=== PATIENT | female | born 1965 | race African-American/Black ===

== ENCOUNTER → 2017-11-08 | Outpatient (CLI) | payer BC ==
[~2017-11-08] MED LIST: BIOT1CAP2 PO; MOBI15TA PO; MULT-65 PO; VENTAER INH; VITA1000 PO; VITA500C18 PO
--- NOTE | 2017-11-09 15:58 | EKG ---
Date Performed: 11/08/2017 Time Performed: 13:20:02 PTAGE: 52 years EKG: Sinus rhythm . Normal ECG NO PREVIOUS TRACING DOCTOR: Adolfo Quezada Interpretating Date/Time 11/09/2017 15:56:26
== END ==
LOC: CPRE 13:03
PROVIDERS: ATTEND Obstetrics & Gynecology
DX: Z01.810 Encounter for preprocedural cardiovascular examination (principal); D25.9 Leiomyoma of uterus, unspecified; N83.202 Unspecified ovarian cyst, left side
CPT/HCPCS: 93005

== ENCOUNTER 2017-11-30 11:50 | Inpatient (IN) | payer BC ==
--- NOTE | 2017-11-29 08:52 | MH ---
cc: DWAYNE FITZPATRICK DATE OF ADMISSION: 11/30/2017 ADMITTING DIAGNOSIS Pelvic pain with enlarging fibroids and ovarian cyst. HISTORY OF PRESENT ILLNESS The patient is a 52-year-old black female, para 2-0-1-2, who has had pelvic pain and pressure related to enlarging fibroids. Her most recent ultrasound on 09/26/2017 showed two prominent fundal fibroids, each about 2.1 cm, and a simple cyst involving the left ovary, 2.0 cm. She is now admitted for surgical treatment. Her menstrual cycles have been regular and last about 3 days with some dysmenorrhea. PAST MEDICAL HISTORY PREVIOUS SURGERY Sinuses and tonsils in 1988. MEDICATIONS Albuterol. ALLERGIES PENICILLIN. TRANSFUSIONS None. SERIOUS MEDICAL ILLNESSES Asthma. OB HISTORY Two vaginal deliveries. One spontaneous . 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 She is 14 years. Alcohol occasional. Tobacco none. Drugs none. FAMILY HISTORY Her family history is noncontributory. PHYSICAL EXAMINATION GENERAL: A well-nourished well-developed black female. VITAL SIGNS: Stable. HEENT: Exam is normal. CHEST: Clear. HEART: Regular rate. BREASTS: Symmetrical. ABDOMEN: Benign. PELVIC: Normal external genitalia and BUS. Vagina is normal. Cervix is normal. The uterus is enlarged about 12-14 weeks in size with cystic left adnexa. ASSESSMENT As above. PLAN She is now admitted for a surgical evaluation to include laparoscopy with probable laparotomy for a myomectomy and ovarian cystectomy. While in the office I explained the procedures, the risks, benefits and complications including infection, injury, bleeding and recurrent fibroids. She is also aware that the procedure may not eliminate all pain and discomfort. The patient elected to proceed. MD KATERINE Meng/ASTRID /8:13 AM 8:28 AM CAREY
[~2017-11-30] VITALS: Ht 165.1 cm; Wt 60.5 kg
[2017-11-30] MEDS ORDERED: LACTATED RINGER'S 1000 ML INJ 1,000 ML IV ONE (12:00)
[2017-11-30] MEDS ORDERED: LIDOCAINE HCL 1% PF 5 ML SYRINGE OTHER ONE (12:00)
[2017-11-30] MEDS ORDERED: PROPOFOL 200 MG/20 ML AMP IV ONE (12:00)
[2017-11-30] MEDS ORDERED: ROCURONIUM INJ 50 MG/5 ML SYRINGE IV PUSH ONE (12:00)
[2017-11-30] MEDS ORDERED: GLYCOPYRROLATE 1 MG/5 ML SYRINGE IV PUSH ONE (12:00)
[2017-11-30] MEDS ORDERED: KETOROLAC TROMETHAMINE 30 MG/ML (IVP) VIAL IV PUSH ONE (12:00)
[2017-11-30] MEDS ORDERED: NEOSTIGMINE 5 MG/5 ML SYRINGE IV PUSH ONE (12:00)
[2017-11-30] MEDS ORDERED: ONDANSETRON HCL 4 MG/2 ML VIAL IV PUSH ONE (12:00)
[2017-11-30] MEDS ORDERED: DEXAMETHASONE SOD PHOS 4 MG/ML VIAL IV ONE (12:00)
[2017-11-30] MEDS ORDERED: SODIUM CHLORIDE 0.9% 20 ML VIAL IV ONE (12:00)
[2017-11-30] MEDS ORDERED: CLINDAMYCIN PHOS 900 MG/6 ML VIAL ONE (12:53)
[2017-11-30] MEDS ORDERED: SODIUM CHLORIDE 0.9% INJ 100 ML ONE (12:54)
[2017-11-30] MEDS ORDERED: ACETAMINOPHEN 1000 MG/100 ML 100 ML IV ONE (13:00)
[2017-11-30] MEDS ORDERED: CHLORHEXIDINE GLUCONATE 2 % 1 PACK (2 CLOTHS) TOPICAL PRN (13:00)
[2017-11-30] MEDS ORDERED: POVIDONE IODINE 5% (ANTISEPSIS KIT) 4 APPLICATIONS EACH NARE PRN (13:00)
[2017-11-30] MEDS ORDERED: SODIUM CHLORID 0.9% 500 ML IV PRN (13:00)
[2017-11-30] MEDS ORDERED: METOPROLOL TARTRATE 25 MG TAB PO PRN (13:00)
[2017-11-30] MEDS ORDERED: LACTATED RINGER'S 1000 ML IV PRN (13:00)
[2017-11-30] MEDS ORDERED: CLINDAMYCIN 900 MG/NS PREMIX 50 ML IV ONE (13:00)
[2017-11-30] MEDS ORDERED: BUPIVACAINE/EPINEPHRINE 0.5% 50 ML VIAL ONE (15:34)
[2017-11-30] MEDS ORDERED: MIDAZOLAM HCL 2 MG/2 ML VIAL ONE (15:54)
[2017-11-30] MEDS ORDERED: ACETAMINOPHEN 1000 MG/100 ML 0 ML IV ONE (15:54)
[2017-11-30] MEDS ORDERED: ROPIVACAINE 0.5% PF INJ 30 ML VIAL ONE (17:28)
[2017-11-30] MEDS ORDERED: MORPHINE SULFATE 30 MG/30 ML PCA IV SCH (17:30)
[2017-11-30] MEDS ORDERED: ZOLPIDEM TARTRATE 5 MG TAB PO PRN (17:30)
[2017-11-30] MEDS ORDERED: ONDANSETRON HCL 4 MG/2 ML VIAL IV PUSH PRN (17:30)
[2017-11-30] MEDS ORDERED: NALOXONE HCL 0.4 MG/ML AMP IV PUSH PRN (17:30)
[2017-11-30] MEDS ORDERED: PROMETHAZINE INJ 25 MG/ML VIAL IM PRN (17:30)
[2017-11-30] MEDS ORDERED: DO NOT ADM ANY ANTICOAGULANT DRUGS PRN (18:03)
--- NOTE | 2017-11-30 18:17 | MP ---
cc: DWAYNE FITZPATRICK DATE OF SURGERY 11/30/2017 PREOPERATIVE DIAGNOSIS Pelvic pain, uterine fibroids, left ovarian cyst. POSTOPERATIVE DIAGNOSIS Uterine fibroids. PROCEDURE Laparoscopy followed by laparotomy with myomectomy times three. ANESTHESIA General ET SURGEON Dwayne Fitzpatrick MD CHOREOGRAPHY DIRECTOR [place] ESTIMATED BLOOD LOSS 50 cc FLUIDS Are 1.4 liters of crystalloid. OBJECTIVE FINDINGS Following induction of adequate general endotracheal incision, the patient was prepped and draped supine on the operating table in the usual sterile fashion with bladder being drained by Santiago catheterization. The abdomen was opened through a 0.5 cm infra-umbilical incision. A 5 port was placed and the laparoscope was inserted. Under direct vision a second port was placed in the midline suprapubic. The uterus is about 12 weeks' size with fibroids two of which are posterior, one was anterior. Due to the posterior location it was felt best to proceed with laparotomy. The scope was removed, gas allowed to escape. Ports removed. The lower port site was enlarged to an 8-cm transverse Pfannenstiel incision using a knife to cut down through the skin to the fascia. The fascia was opened transversely, stripped from the muscles, the rectus muscle in the midline and the peritoneum was opened sharply. The elastic protractor was placed. The bowels were packed from the operative field and the uterus was elevated with Huntington clamps on the round ligaments. The posterior fundal fibroid was removed, opening with a midline incision. This was shelled out about 2 cm in size and the wound was closed in two layers of 0 Vicryl interrupted sutures. A superficial posterior fibroid was also shelled out on the right posterior side and closed with one layer of interrupted sutures of 0 Vicryl. Anteriorly a mid incision was made to remove another 2 cm fibroid. This was shelled out and the wound closed in two layers of Vicryl 0 interrupted sutures. Irrigation performed. No bleeding was evident. The operative sites were coated with Interceed both front and back. The laps were removed. Counts were correct. The patient's lap band was inspected, it had not been compromised by the surgery, the lap band injection tubing. The perineum was now closed with running stitch of 2-0 Vicryl, the fascia with a running locking stitch of 2-0 Vicryl corner to midline and tied, subcu with running 3-0 Vicryl and skin with running subcuticular 3-0 Monocryl. The umbilical laparoscope port was closed with Monocryl sutures 3-0 interrupted. Dermabond applied. All counts were correct and the patient was awakened and taken to the recovery room in good condition. MD KATERINE Meng/YOUSIF /5:14 PM /5:35 PM MTDEdyta
[2017-11-30] MEDS: D5-1/2 NS + KCL 20 MEQ INJ 1,000 ML IV SCH (18:21)
[2017-11-30] MEDS ORDERED: *morphine SULFATE 4 MG/ML PERIprocedure ONLY ONE (18:27)
[2017-11-30 18:53] VITALS: BP 115/70; PULSE 62; RESP 14; TEMP 97.9; O2SAT 94
[2017-11-30] MEDS ORDERED: ALBUTEROL SULFATE 90 MCG/ACT HFA 18 GM INHALER INH PRN (19:00)
[2017-11-30] MEDS ORDERED: KETOROLAC TROMETHAMINE 30 MG/ML (IVP) VIAL IVP SCH (19:00)
[2017-11-30] MEDS ORDERED: ALBUTEROL SULFATE 90 MCG/ACT HFA 8 GM INHALER INH PRN (19:30)
[2017-11-30 20:00] VITALS: BP 97/64; PULSE 64; RESP 16; TEMP 98.2; O2SAT 100
[2017-11-30] MEDS ORDERED: ACETAMINOPHEN 1000 MG/100 ML VIAL IV SCH (21:00)
[2017-11-30] MEDS: DOCUSATE SODIUM 100 MG CAP PO SCH (21:00)
[2017-11-30 21:13] LABS: HEMATOCRIT 39.4 % (35.0-46.0); HEMOGLOBIN 13.1 GM/DL (11.6-15.3)
[2017-11-30] MEDS: PCA - TOTAL MG MORPHINE DELIVERED PER SHIFT SCH (22:00)
[2017-11-30] MEDS: KETOROLAC TROMETHAMINE 30 MG/ML (IVP) VIAL IVP SCH (23:28)
[2017-12-01] VITALS (7 sets, daily range): BP systolic 75–91; BP diastolic 44–68; PULSE 53–69; RESP 14–18; TEMP 97.4–98.1; O2SAT 95–100
[2017-12-01] MEDS: ACETAMINOPHEN 1000 MG/100 ML VIAL IV SCH ×2 (01:34→10:05)
[2017-12-01] MEDS: D5-1/2 NS + KCL 20 MEQ INJ 1,000 ML IV SCH (01:34)
[2017-12-01] MEDS: KETOROLAC TROMETHAMINE 30 MG/ML (IVP) VIAL IVP SCH ×2 (05:16→12:21)
[2017-12-01] MEDS: PCA - TOTAL MG MORPHINE DELIVERED PER SHIFT SCH (05:25)
[2017-12-01 06:22] LABS: AUTOMATED NEUTROPHIL # 9.1 TH/MM3 (1.8-7.7); BASOPHIL % 0.2 % (0.0-2.0); HEMATOCRIT 32.4 % (35.0-46.0); HEMOGLOBIN 11.2 GM/DL (11.6-15.3); LYMPH % 5.7 % (9.0-44.0); LYMPHOCYTE # 0.6 TH/MM3 (1.0-4.8); MEAN CELL VOLUME 97.7 FL (80.0-100.0); MEAN CORPUSCULAR HEMOGLOBIN 33.8 PG (27.0-34.0); MEAN CORPUSCULAR HGB CONC 34.6 % (32.0-36.0); MEAN PLATELET VOLUME 7.3 FL (7.0-11.0); MONO % 2.2 % (0.0-8.0); MONOCYTE # 0.2 TH/MM3 (0-0.9); NEUT % 91.9 % (16.0-70.0); PLATELET COUNT 255 TH/MM3 (150-450); RED BLOOD COUNT 3.32 MIL/MM3 (4.00-5.30); RED CELL DISTRIBUTION WIDTH 13.2 % (11.6-17.2); WHITE BLOOD COUNT 9.8 TH/MM3 (4.0-11.0)
[2017-12-01 06:45] LABS: BICARBONATE 24.4 MEQ/L (21.0-32.0); CALCIUM 8.1 MG/DL (8.5-10.1); CREATININE 0.86 MG/DL (0.50-1.00)
[2017-12-01] MEDS: DOCUSATE SODIUM 100 MG CAP PO SCH (09:00)
--- NOTE | 2017-12-02 23:58 | EKG ---
Date Performed: 11/30/2017 Time Performed: 13:16:51 PTAGE: 52 years EKG: SINUS BRADYCARDIA BORDERLINE ECG PREVIOUS TRACING : 11/08/2017 13.20 DOCTOR: Anthony High Interpretating Date/Time 12/02/2017 23:56:16
== END 2017-12-01 14:50 | disposition home or self-care (01) | DRG 743 ==
LOC: INTOOBSV 12:12 → HSDI 12:12 → EDSTATUS 14:45 → OBSVTOIN 17:24 → H1EA 18:38
PROVIDERS: ADMIT Obstetrics & Gynecology; ATTEND Obstetrics & Gynecology
PROC: 0UB90ZZ Excision of Uterus, Open Approach (ICD-10-PCS; principal; 2017-11-30 16:07)
PROC: 0WJJ4ZZ Inspection of Pelvic Cavity, Percutaneous Endoscopic Approach (ICD-10-PCS; 2017-11-30 16:07)
DX: D25.9 Leiomyoma of uterus, unspecified (principal); F32.9 Major depressive disorder, single episode, unspecified; J45.909 Unspecified asthma, uncomplicated; N94.6 Dysmenorrhea, unspecified; N83.202 Unspecified ovarian cyst, left side; Z98.84 Bariatric surgery status; Z88.0 Allergy status to penicillin; Z91.013 Allergy to seafood
CPT/HCPCS: 80048; 85014; 85018; 85025; 88305; 93005; 94150; J0131; J1100; J1885; J2250; J2270; J2405; J2710; J2795; J3010; J3480; J7120

== ENCOUNTER 2018-04-07 21:08 | Emergency (ER) | payer BC ==
[~2018-04-07] VITALS: Ht 165.1 cm; Wt 65.0 kg
[2018-04-07 21:32] VITALS: BP 91/55; PULSE 66; RESP 16; TEMP 98.2; O2SAT 100
[2018-04-07] MEDS ORDERED: NYST1OIN TOPICAL (21:45)
--- NOTE | 2018-04-07 21:45 | PD ---
HPI Chief Complaint: Skin Problem Time Seen by Provider: 21:30 Travel History International Travel<30 days: No Contact w/Intl Traveler<30days: No Traveled to known affect area: No History of Present Illness HPI Patient notice a rash that started forming on the nape of her neck, just today, itchy, raised. Patient denies any pain, any fever, any drainage, patient states that she is not to her recollection used any new creams or NEW jewelry or new clothes that has been tried. States that she develops hives and swelling to her lips to penicillin PFSH Past Medical History Asthma: Yes Autoimmune Disease: No Anxiety: Yes (low level) Depression: Yes (low level) Cancer: No Cardiovascular Problems: No Diabetes: Yes (Gestational Diabetes) Diminished Hearing: No Endocrine: Yes Genitourinary: No Hepatitis: No Hiatal Hernia: No Immune Disorder: No Musculoskeletal: No Neurologic: No Psychiatric: Yes Reproductive: No Respiratory: Yes Immunizations Current: Yes Thyroid Disease: No Tetanus Vaccination: Unknown Influenza Vaccination: No ?: Not LMP: 04-05-18 Past Surgical History Abdominal Surgery: Yes (Lap Band) AICD: No Cardiac Surgery: No Ear Surgery: No Eye Surgery: No Genitourinary Surgery: No Gynecologic Surgery: Yes (fibroid removal) Joint Replacement: No Oral Surgery: Yes (T/A) Pacemaker: No Thoracic Surgery: No Tonsillectomy: Yes Social History Alcohol Use: No Tobacco Use: No Substance Use: No Allergies-Medications (Allergen,Severity, Reaction): Coded Allergies: Penicillins (Verified Allergy, Severe, 04/07/18) shellfish derived (Verified Allergy, Severe, 04/07/18) Reported Meds & Prescriptions Reported Meds & Active Scripts Active Reported Ventolin Hfa 18 GM Inh (Albuterol Sulfate) 90 Mcg/Act Aer 2 Puff INH Q4-6H PRN Review of Systems General / Constitutional: No: Fever Eyes: No: Visual changes HENT: No: Headaches Cardiovascular: No: Chest Pain or Discomfort Respiratory: No: Shortness of Breath Gastrointestinal: No: Abdominal Pain Genitourinary: No: Dysuria Musculoskeletal: No: Pain Skin: Positive Rash, Positive Itching Neurologic: No: Weakness Psychiatric: No: Depression Endocrine: No: Polydipsia Hematologic/Lymphatic: No: Easy Bruising Physical Exam Narrative GENERAL: SKIN: Warm and dry. Raised erythematous macular rash, nonindurated no streaking no warmth... HEAD: Atraumatic. Normocephalic. EYES: Pupils equal and round. No scleral icterus. No injection or drainage. ENT: No nasal bleeding or discharge. Mucous membranes pink and moist. NECK: Trachea midline. No JVD. CARDIOVASCULAR: Regular rate and rhythm. RESPIRATORY: No accessory muscle use. Clear to auscultation. Breath sounds equal bilaterally. GASTROINTESTINAL: Abdomen soft, non-tender, nondistended. MUSCULOSKELETAL: Extremities without clubbing, cyanosis, or edema. No obvious deformities. NEUROLOGICAL: Awake and alert. No obvious cranial nerve deficits. Motor grossly within normal limits. Five out of 5 muscle strength in the arms and legs. Normal speech. PSYCHIATRIC: Appropriate mood and affect; insight and judgment normal. Data Data Last Documented VS Vital Signs Date Time Temp Pulse Resp B/P (MAP) Pulse Ox O2 Delivery O2 Flow Rate FiO2 04/07/18 21:32 98.2 66 16 91/55 (67) 100 MDM Medical Decision Making Medical Screen Exam Complete: Yes Emergency Medical Condition: Yes Medical Record Reviewed: Yes Differential Diagnosis Contact dermatitis versus hives versus lymphangitis versus cellulitis versus abscess Narrative Course Clinically the patient has contact dermatitis, patient will be provided with a prescription and advised to follow-up with her primary care Diagnosis Primary Impression: Contact dermatitis Patient Instructions: Contact Dermatitis (ED), General Instructions Scripts Nystatin-Triamcinolone (Nystatin-Triamcinolone) 100,000-0.1 Unit/Gm Oint 1 APPLIC TOPICAL Q12HR for Infection, #60 GM 0 Refills Prov: Bk Adair MD 04/07/18 Disposition: 01 DISCHARGE HOME Condition: Stable Bk Adair MD April 07, 2018 21:45
== END 2018-04-07 21:56 | disposition home or self-care (01) ==
LOC: PHEFT 21:08
DX: L25.9 Unspecified contact dermatitis, unspecified cause (principal); J45.909 Unspecified asthma, uncomplicated; F41.9 Anxiety disorder, unspecified; F32.9 Major depressive disorder, single episode, unspecified
CPT/HCPCS: 99283